=== PATIENT | male | born 1935 | race Caucasian/White ===

== ENCOUNTER → 2020-12-03 | Outpatient (REF) | payer MEDICARE | LOC: M LAB REF 17:04 | PROVIDERS: ATTEND Surgery | DX: L72.0 Epidermal cyst (principal) ==

== ENCOUNTER 2024-07-16 10:40 | Inpatient (IN) | payer MEDICARE ==
[~2024-07-16] VITALS: Ht 182.9 cm; Wt 95.0 kg
[2024-07-16] MEDS ORDERED: MIRALAX *UNIT DOSE* 17GM PACKET PO PRN (13:40)
[2024-07-16] MEDS ORDERED: MAALOX 30 ML SUSP *UDC PO PRN (13:40)
[2024-07-16] MEDS ORDERED: SIMETHICONE 80MG CHEW TAB PO PRN (13:40)
[2024-07-16] MEDS ORDERED: ONDANSETRON 4MG TAB PO PRN (13:40)
[2024-07-16] MEDS ORDERED: BISACODYL 10MG SUPP PR PRN (13:40)
[2024-07-16 15:30] VITALS: BP 162/88; TEMP 98; O2SAT 92
[2024-07-16] MEDS ORDERED: AMLO1TAB25 PO (16:05)
[2024-07-16] MEDS ORDERED: FURO40TA2 PO (16:05)
[2024-07-16] MEDS ORDERED: FLOM0.4C39 PO (16:05)
[2024-07-16] MEDS ORDERED: EZET10TA21 PO (16:09)
[2024-07-16] MEDS ORDERED: TRAN1DIS4 TOP (16:09)
[2024-07-16] MEDS ORDERED: OMEP40CA5 PO (16:09)
[2024-07-16] MEDS ORDERED: VIBE75TA PO (16:09)
[2024-07-16] MEDS ORDERED: VITA250T27 PO (16:47)
[2024-07-16] MEDS ORDERED: ACET-907 PO (16:47)
[2024-07-16] MEDS ORDERED: ELIQ5TAB PO (16:47)
[2024-07-16] MEDS ORDERED: THERTAB52 PO (16:47)
[2024-07-16] MEDS ORDERED: DOCU100C16 PO (16:49)
[2024-07-16] MEDS ORDERED: TRAZ-252 PO (16:49)
[2024-07-16] MEDS ORDERED: MELA3TAB29 PO (16:50)
[2024-07-16] MEDS ORDERED: SIME80CH6 PO (16:50)
[2024-07-16] MEDS ORDERED: MILK400S12 PO (16:51)
[2024-07-16] MEDS ORDERED: HOME MED LIST COMPLETE! XX SCH (16:55)
[2024-07-16 20:00] VITALS: BP 126/62; TEMP 98.8; O2SAT 100
[2024-07-16] MEDS: PANTOPRAZOLE 40MG TAB (PROTONIX) PO SCH (20:40)
[2024-07-16] MEDS: MIRTAZAPINE 15 MG TAB PO SCH (20:40)
[2024-07-16] MEDS: APIXABAN 5 MG TAB (ELIQUIS) PO SCH (20:40)
[2024-07-16] MEDS: TAMSULOSIN 0.4 MG CAP PO SCH (20:41)
[2024-07-16] MEDS: ACETAMINOPHEN 500 MG TAB PO SCH (20:41)
[2024-07-16] MEDS: SENOKOT S TAB PO SCH (20:41)
[2024-07-16] MEDS: oxyCODONE 5MG TAB PO PRN (22:24)
[2024-07-17] MEDS: QUEtiapine FUMARATE 12.5 MG HALF-TAB PO PRN (00:43)
[2024-07-17 04:27] VITALS: BP 131/73; TEMP 97.1; O2SAT 96
[2024-07-17 07:52] LABS: BASO # 0.1 10^3/uL (0.0-0.2); BASO % 0.8 % (0.0-1.0); EOS # 0.2 10^3/uL (0.0-0.5); EOS % 2.8 % (0.0-3.0); HEMATOCRIT 38.3 % (42.0-52.0); HEMOGLOBIN 12.7 g/dl (13.5-17.5); LYMPH # 1.2 10^3/uL (1.5-5.0); LYMPH % 14.1 % (24.0-44.0); MEAN CORPUSCULAR HGB CONC 33.2 g/dl (32.0-36.5); MEAN CORPUSCULAR VOLUME 90.5 fl (80.0-96.0); MONO # 0.7 10^3/uL (0.0-0.8); MONO % 8.6 % (2.0-8.0); NEUTROPHILS # 6.3 10^3/uL (1.5-8.5); NEUTROPHILS % 73.5 % (36.0-66.0); PLATELET COUNT, AUTOMATED 326 10^3/uL (150-450); RED BLOOD COUNT 4.23 10^6/uL (4.30-6.10); WHITE BLOOD COUNT 8.6 10^3/uL (4.0-10.0)
[2024-07-17] MEDS: traZODone 25MG PER 1/2 TABLET PO SCH (08:20)
[2024-07-17] MEDS: FUROSEMIDE 40 MG TAB PO SCH (08:20)
[2024-07-17] MEDS: MULTIVITAMINS/MINERALS THERAP 1 TAB PO SCH (08:20)
[2024-07-17 08:32] LABS: BLOOD UREA NITROGEN 15 MG/DL (9-23); CALCIUM LEVEL 8.8 MG/DL (8.3-10.6); CARBON DIOXIDE LEVEL 31 MMOL/L (20-31); CHLORIDE LEVEL 103 MMOL/L (98-107); CREATININE FOR GFR 0.78 MG/DL (0.70-1.30); GLOMERULAR FILTRATION RATE > 60.0 (>35); GLUCOSE, FASTING 107 MG/DL (74-106); SODIUM LEVEL 143 MMOL/L (136-145)
[2024-07-17] MEDS ORDERED: E-Z-PAQUE 96% w/w SUSP 176GM BTL As Ordered ONE (11:27)
[2024-07-17] MEDS ORDERED: VARIBAR PUDDING 40% w/v 230ML TUBE As Ordered ONE (11:27)
[2024-07-17] MEDS ORDERED: VARIBAR NECTAR 40% w/v 240ML SUSP BTL As Ordered ONE (11:27)
[2024-07-17] MEDS ORDERED: BARIUM SULFATE 700 MG TABLET (E-Z-DISK) As Ordered ONE (11:27)
[2024-07-17] MEDS: LevoFLOXacin 500 MG TABLET PO SCH (13:23)
[2024-07-17 18:00] VITALS: BP 122/76; TEMP 97.2; O2SAT 100
[2024-07-17] MEDS: QUEtiapine FUMARATE 25 MG TAB PO SCH (18:52)
[2024-07-17 20:00] VITALS: BP 113/69; TEMP 97.8; O2SAT 95
[2024-07-18 04:00] VITALS: BP 129/63; TEMP 96.6; O2SAT 95
[2024-07-18 12:00] VITALS: TEMP 97.1; O2SAT 95
[2024-07-18] MEDS: BISACODYL 5MG TAB PO ONE (15:34)
[2024-07-18 20:00] VITALS: BP 159/77; TEMP 96.8; O2SAT 95
[2024-07-18] MEDS: SENOKOT S TAB PO SCH (20:13)
[2024-07-19 04:00] VITALS: BP 160/82; TEMP 97.1; O2SAT 96
[2024-07-19] MEDS: guaiFENesin DM LIQ 10ML UD PO PRN (06:30)
[2024-07-19] MEDS: MOM 30ML SUSPENSION UDC PO PRN (09:12)
[2024-07-19] MEDS ORDERED: POLYVINYL ALCOHOL OPHTH SOLN 15ML (LIQUITEARS) OU PRN (11:05)
[2024-07-19 12:00] VITALS: BP 149/70; TEMP 97.5; O2SAT 95
[2024-07-19] MEDS: POLYVINYL ALCOHOL OPHTH SOLN 15ML (LIQUITEARS) OU SCH (12:37)
[2024-07-19 20:00] VITALS: BP 139/66; TEMP 97.3; O2SAT 96
[2024-07-20 04:07] VITALS: BP 150/71; TEMP 97.2; O2SAT 95
[2024-07-20 12:00] VITALS: BP 116/68; TEMP 98.1; O2SAT 94
[2024-07-20 19:54] VITALS: BP 151/73; TEMP 98.6; O2SAT 94
[2024-07-21 04:44] VITALS: BP 162/74; TEMP 96; O2SAT 95
[2024-07-21 05:48] VITALS: BP 136/74
[2024-07-21 12:00] VITALS: BP 133/64; TEMP 98.3; O2SAT 97
[2024-07-21 19:46] VITALS: BP 158/76; TEMP 97.6; O2SAT 92
[2024-07-22 04:30] VITALS: BP 188/90; TEMP 97.6; O2SAT 97
[2024-07-22] MEDS: **hydrALAZINE HCL** 25 MG TAB PO PRN (05:21)
[2024-07-22 08:06] VITALS: BP 128/78
[2024-07-22 09:33] VITALS: O2SAT 95
[2024-07-22 12:00] VITALS: BP 122/74; TEMP 98; O2SAT 97
[2024-07-22] MEDS: SCOPOLAMINE 1MG TRANSDERMAL PATCH TOP SCH (12:54)
[2024-07-22] MEDS: IBUPROFEN 400MG TAB PO ONE (12:55)
[2024-07-22 20:00] VITALS: BP 131/68; TEMP 97.7; O2SAT 94
[2024-07-23 04:00] VITALS: BP 130/79; TEMP 97.3; O2SAT 95
[2024-07-23] MEDS: IBUPROFEN 400MG TAB PO PRN (08:46)
[2024-07-23 12:00] VITALS: BP 128/74; TEMP 97.5; O2SAT 96
[2024-07-23 20:00] VITALS: BP 146/67; TEMP 98.2; O2SAT 93
[2024-07-24 04:00] VITALS: BP 130/76; TEMP 97.8; O2SAT 94
[2024-07-24 12:00] VITALS: BP 129/62; TEMP 97.6; O2SAT 95
[2024-07-24 19:34] VITALS: BP 154/72; TEMP 98.6; O2SAT 95
[2024-07-24] MEDS: oxyCODONE 5MG TAB PO PRN (23:48)
[2024-07-25 04:00] VITALS: BP 157/76; TEMP 97.8; O2SAT 96
[2024-07-25 11:44] LABS: BASO # 0.1 10^3/uL (0.0-0.2); EOS # 0.2 10^3/uL (0.0-0.5); EOS % 2.6 % (0.0-3.0); HEMATOCRIT 42.1 % (42.0-52.0); HEMOGLOBIN 13.9 g/dl (13.5-17.5); LYMPH # 1.3 10^3/uL (1.5-5.0); LYMPH % 17.8 % (24.0-44.0); MEAN CORPUSCULAR VOLUME 90.9 fl (80.0-96.0); MONO # 0.6 10^3/uL (0.0-0.8); MONO % 8.4 % (2.0-8.0); NEUTROPHILS # 4.9 10^3/uL (1.5-8.5); NEUTROPHILS % 70.1 % (36.0-66.0); PLATELET COUNT, AUTOMATED 350 10^3/uL (150-450); RED BLOOD COUNT 4.63 10^6/uL (4.30-6.10)
[2024-07-25 12:00] VITALS: BP 117/56; TEMP 97.5; O2SAT 96
[2024-07-25] MEDS: BISACODYL 5MG TAB PO ONE (12:05)
[2024-07-25 12:10] LABS: ALBUMIN 3.7 G/DL (3.2-5.2); ALKALINE PHOSPHATASE 88 U/L (40-129); ALT/SGPT 19 U/L (7.0-40); AST/SGOT 21 U/L (<34); BILIRUBIN,TOTAL 0.6 MG/DL (0.3-1.2); BLOOD UREA NITROGEN 17 MG/DL (9-23); CALCIUM LEVEL 9.6 MG/DL (8.3-10.6); CARBON DIOXIDE LEVEL 31 MMOL/L (20-31); CHLORIDE LEVEL 103 MMOL/L (98-107); CREATININE FOR GFR 0.83 MG/DL (0.70-1.30); GLOMERULAR FILTRATION RATE > 60.0 (>35); GLUCOSE, FASTING 98 MG/DL (74-106); POTASSIUM SERUM 4.5 MMOL/L (3.5-5.1); SODIUM LEVEL 142 MMOL/L (136-145); TOTAL PROTEIN 7.3 G/DL (5.7-8.2)
[2024-07-25 15:25] LABS: KETONE, URINE AUTO RFX NEGATIVE (NEGATIVE); LEUKOCYTE ESTERASE UR AUTO RFX NEGATIVE (NEGATIVE)
[2024-07-25 20:29] VITALS: BP 131/69; TEMP 97.2; O2SAT 93
[2024-07-26 03:52] VITALS: BP 157/74; TEMP 97.6; O2SAT 95
[2024-07-26] MEDS: BISACODYL 5MG TAB PO SCH (08:57)
[2024-07-26 12:00] VITALS: BP 133/67; TEMP 97.8; O2SAT 96
[2024-07-26 20:00] VITALS: BP 160/77; TEMP 97.7; O2SAT 95
[2024-07-27] MEDS: traMADol 50 MG TAB PO PRN (00:28)
[2024-07-27 04:00] VITALS: BP 158/82; TEMP 97.4; O2SAT 96
[2024-07-27 12:00] VITALS: BP 128/62; TEMP 97.6; O2SAT 98
[2024-07-27 20:00] VITALS: BP 142/65; TEMP 97.4; O2SAT 94
[2024-07-28 04:00] VITALS: BP 135/68; TEMP 97.4; O2SAT 95
[2024-07-28 12:00] VITALS: BP 132/72; TEMP 97.7; O2SAT 98
[2024-07-28 19:51] VITALS: BP 154/73; TEMP 98; O2SAT 98
[2024-07-29 06:31] VITALS: BP 146/77; TEMP 97.4; O2SAT 97
[2024-07-29 12:00] VITALS: BP 130/62; TEMP 97.4; O2SAT 97
[2024-07-29 20:00] VITALS: BP 134/63; TEMP 98.8; O2SAT 95
[2024-07-29] MEDS ORDERED: TRAM50TA2 PO (20:18)
[2024-07-29] MEDS ORDERED: AMLO1TAB25 PO (20:18)
[2024-07-29] MEDS ORDERED: SENN-52 PO (20:18)
[2024-07-29] MEDS ORDERED: FLOM0.4C39 PO (20:18)
[2024-07-29] MEDS ORDERED: QUET1TAB17 PO (20:18)
[2024-07-29] MEDS ORDERED: IBUP-1114 PO (20:18)
[2024-07-29] MEDS ORDERED: TRAZ-252 PO (20:18)
[2024-07-30 05:10] VITALS: BP 139/77; TEMP 97.8; O2SAT 96
[2024-07-30 08:55] VITALS: BP 138/70
[2024-07-30 12:00] VITALS: BP 128/68; TEMP 97.1; O2SAT 97
== END 2024-07-30 14:55 | disposition home health service (06) | DRG 560 ==
LOC: M PM&R 15:30
PROVIDERS: ADMIT Physical Medicine & Rehabilitation; ATTEND Physical Medicine & Rehabilitation
DX: S72.092D Other fracture of head and neck of left femur, subsequent encounter for closed fracture with routine healing (principal); I48.21 Permanent atrial fibrillation; Z66 Do not resuscitate; I25.10 Atherosclerotic heart disease of native coronary artery without angina pectoris; I10 Essential (primary) hypertension; S00.93XD Contusion of unspecified part of head, subsequent encounter; K21.9 Gastro-esophageal reflux disease without esophagitis; K11.7 Disturbances of salivary secretion; Z74.1 Need for assistance with personal care; R13.12 Dysphagia, oropharyngeal phase; Z74.09 Other reduced mobility; N40.1 Benign prostatic hyperplasia with lower urinary tract symptoms; R05.8 Other specified cough; E78.5 Hyperlipidemia, unspecified; E66.9 Obesity, unspecified; R41.0 Disorientation, unspecified; Z79.01 Long term (current) use of anticoagulants; Z79.891 Long term (current) use of opiate analgesic; Z79.899 Other long term (current) drug therapy; S12.001 Unspecified nondisplaced fracture of first cervical vertebra; Z95.5 Presence of coronary angioplasty implant and graft; Z95.0 Presence of cardiac pacemaker

== ENCOUNTER 2024-08-09 10:34 | Inpatient (IN) | payer MEDICARE ==
[~2024-08-09] VITALS: Ht 188 cm; Wt 90.0 kg
[~2024-08-09 10:34] MED LIST: ACET-907 PO; AMLO1TAB25 PO; DOCU100C16 PO; ELIQ5TAB PO; EZET10TA21 PO; FLOM0.4C39 PO; FURO40TA2 PO; IBUP-1114 PO; MELA3TAB29 PO; MILK400S12 PO; OMEP40CA5 PO; QUET1TAB17 PO; SENN-52 PO; SIME80CH6 PO; THERTAB52 PO; TRAM50TA2 PO; TRAN1DIS4 TOP; TRAZ-252 PO; VIBE75TA PO; VITA250T27 PO
[2024-08-09 12:05] LABS: VENOUS BASE EXCESS 2.1 (-2.0-2.0); VENOUS HCO3 29.2 MMOL/L (23.0-27.0); VENOUS O2 SATURATION 53.4 % (60.0-80.0); VENOUS PARTIAL PRESSURE CO2 55.7 mmHg (38.0-50.0); VENOUS PARTIAL PRESSURE O2 27.6 mmHg (30.0-50.0); VENOUS PH 7.338 UNITS (7.330-7.430); VENOUS STANDARD HCO3 25.2 MMOL/L
[2024-08-09 12:08] LABS: BASO % 0.3 % (0.0-1.0); EOS # 0.1 10^3/uL (0.0-0.5); EOS % 0.9 % (0.0-3.0); LYMPH # 1.4 10^3/uL (1.5-5.0); LYMPH % 14.6 % (24.0-44.0); MEAN CORPUSCULAR HEMOGLOBIN 29.8 pg (27.0-33.0); MEAN CORPUSCULAR HGB CONC 33.3 g/dl (32.0-36.5); MEAN CORPUSCULAR VOLUME 89.4 fl (80.0-96.0); MONO # 0.9 10^3/uL (0.0-0.8); MONO % 9.4 % (2.0-8.0); NEUTROPHILS % 74.5 % (36.0-66.0); PLATELET COUNT, AUTOMATED 289 10^3/uL (150-450); WHITE BLOOD COUNT 9.3 10^3/uL (4.0-10.0)
[2024-08-09 12:15] LABS: KETONE, URINE AUTO RFX TRACE mg/dL (NEGATIVE); LEUKOCYTE ESTERASE UR AUTO RFX NEGATIVE (NEGATIVE); MUCUS, URINE RFX SMALL (NEGATIVE); NITRITE, URINE AUTO RFX NEGATIVE (NEGATIVE); RBC, URINE AUTO RFX 1 /HPF (0-3); SQUAM EPITHELIAL CELL UR AURFX 0 /HPF (0-6); WBC, URINE AUTO RFX 0 /HPF (0-3)
[2024-08-09 12:23] LABS: INR 1.16; PARTIAL THROMBOPLASTIN TIME 36.5 SECONDS (24.8-34.2); PROTHROMBIN TIME 15.1 SECONDS (12.5-14.5)
[2024-08-09 12:32] LABS: ETHYL ALCOHOL (ETHANOL) < 0.003 % (0.000-0.010)
[2024-08-09 12:33] LABS: SALICYLATE LEVEL < 3.0 MG/DL (<30)
[2024-08-09] MEDS: LIDOCAINE 2% 5ML JELLY UROJET TOP ONE (12:33)
[2024-08-09 12:35] LABS: ALBUMIN 4.1 G/DL (3.2-5.2); ALKALINE PHOSPHATASE 101 U/L (40-129); ALT/SGPT 19 U/L (7.0-40); AST/SGOT 21 U/L (<34); BILIRUBIN,DIRECT 0.2 MG/DL (<0.4); BILIRUBIN,TOTAL 0.6 MG/DL (0.3-1.2); BLOOD UREA NITROGEN 17 MG/DL (9-23); CALCIUM LEVEL 9.8 MG/DL (8.3-10.6); CARBON DIOXIDE LEVEL 30 MMOL/L (20-31); CHLORIDE LEVEL 103 MMOL/L (98-107); CPK CREATINE PHOSPHOKINASE 179 U/L (46-171); CREATININE FOR GFR 0.66 MG/DL (0.70-1.30); GLOMERULAR FILTRATION RATE > 60.0 (>35); GLUCOSE, FASTING 111 MG/DL (74-106); POTASSIUM SERUM 4.2 MMOL/L (3.5-5.1); SODIUM LEVEL 143 MMOL/L (136-145); TOTAL PROTEIN 7.5 G/DL (5.7-8.2)
[2024-08-09 12:37] LABS: THYROID STIMULATING HORMONE 1.052 uIU/ML (0.55-4.78)
[2024-08-09 12:38] LABS: CK-MB VALUE MASS 3.3 NG/ML (<3.6); FREE T4 1.6 NG/DL (0.89-1.76); MAGNESIUM LEVEL 2.1 MG/DL (1.8-2.4); MB/CK RELATIVE INDEX 1.84 (< OR =4)
[2024-08-09] MEDS ORDERED: TRAM50TA2 PO (13:54)
[2024-08-09] MEDS ORDERED: SENN-50 PO (13:54)
[2024-08-09] MEDS ORDERED: QUET1TAB17 PO (13:54)
[2024-08-09] MEDS ORDERED: TRAZ1TAB10 PO (13:54)
[2024-08-09] MEDS ORDERED: HOME MED LIST COMPLETE! XX SCH (13:55)
[2024-08-09] MEDS: APIXABAN 5 MG TAB (ELIQUIS) PO SCH (20:58)
[2024-08-09] MEDS: traZODone 25MG PER 1/2 TABLET PO SCH (20:58)
[2024-08-09] MEDS: ASCORBIC ACID 250 MG TAB PO SCH (20:58)
[2024-08-09] MEDS: TAMSULOSIN 0.4 MG CAP PO SCH (20:58)
[2024-08-09] MEDS: SENOKOT S TAB PO SCH (20:58)
[2024-08-09] MEDS: QUEtiapine FUMARATE 25 MG TAB PO SCH (20:58)
[2024-08-09] MEDS: RAMELTEON 8 MG TAB (ROZEREM) PO SCH (20:58)
[2024-08-09 21:30] VITALS: BP 137/77; TEMP 97.7; O2SAT 97
[2024-08-10 04:00] VITALS: BP 146/75; TEMP 97.5; O2SAT 96
[2024-08-10 07:28] LABS: HEMATOCRIT 38.4 % (42.0-52.0); HEMOGLOBIN 12.9 g/dl (13.5-17.5); MEAN CORPUSCULAR HEMOGLOBIN 30.2 pg (27.0-33.0); MEAN CORPUSCULAR HGB CONC 33.6 g/dl (32.0-36.5); MEAN CORPUSCULAR VOLUME 89.9 fl (80.0-96.0); PLATELET COUNT, AUTOMATED 264 10^3/uL (150-450); RED BLOOD COUNT 4.27 10^6/uL (4.30-6.10); WHITE BLOOD COUNT 6.8 10^3/uL (4.0-10.0)
[2024-08-10 08:08] LABS: ALBUMIN 3.4 G/DL (3.2-5.2); ALKALINE PHOSPHATASE 84 U/L (40-129); ALT/SGPT 15 U/L (7.0-40); AST/SGOT 20 U/L (<34); BILIRUBIN,TOTAL 0.7 MG/DL (0.3-1.2); BLOOD UREA NITROGEN 18 MG/DL (9-23); CALCIUM LEVEL 9.3 MG/DL (8.3-10.6); CARBON DIOXIDE LEVEL 29 MMOL/L (20-31); CHLORIDE LEVEL 107 MMOL/L (98-107); CREATININE FOR GFR 0.64 MG/DL (0.70-1.30); GLOMERULAR FILTRATION RATE > 60.0 (>35); GLUCOSE, FASTING 105 MG/DL (74-106); POTASSIUM SERUM 3.9 MMOL/L (3.5-5.1); SODIUM LEVEL 143 MMOL/L (136-145); TOTAL PROTEIN 6.4 G/DL (5.7-8.2)
[2024-08-10] MEDS: PANTOPRAZOLE 20 MG TAB PO SCH (10:22)
[2024-08-10] MEDS: EZETIMIBE 10MG TABLET (ZETIA) PO SCH (10:22)
[2024-08-10 12:00] VITALS: BP 123/63; TEMP 97.5; O2SAT 96
[2024-08-10 20:00] VITALS: BP 162/82; TEMP 97.5; O2SAT 96
[2024-08-10] MEDS: traMADol 50 MG TAB PO PRN (23:13)
[2024-08-11] MEDS: ACETAMINOPHEN 325 MG TAB PO PRN (03:16)
[2024-08-11 03:47] VITALS: BP 160/81; TEMP 97.7; O2SAT 96
[2024-08-11 12:00] VITALS: BP 140/65; TEMP 97.5; O2SAT 98
[2024-08-11 20:08] VITALS: BP 157/78; TEMP 97.9; O2SAT 96
[2024-08-12 04:00] VITALS: BP 155/79; TEMP 97.7; O2SAT 96
[2024-08-12 09:02] VITALS: BP 137/67
[2024-08-12 12:00] VITALS: BP 138/68; TEMP 97.6; O2SAT 98
[2024-08-12 20:50] VITALS: BP 132/69; TEMP 98.1; O2SAT 92
[2024-08-13 03:50] VITALS: BP 140/72; TEMP 97.7; O2SAT 97
[2024-08-14 04:00] VITALS: BP 144/73; TEMP 97.5; O2SAT 96
[2024-08-14 12:00] VITALS: BP 137/72; TEMP 97.6; O2SAT 98
[2024-08-14 19:44] VITALS: BP 143/76; TEMP 97; O2SAT 98
[2024-08-15 04:04] VITALS: BP 169/84; TEMP 97.9; O2SAT 97
[2024-08-15 12:28] LABS: HEMATOCRIT 38.2 % (42.0-52.0); HEMOGLOBIN 12.8 g/dl (13.5-17.5); MEAN CORPUSCULAR HEMOGLOBIN 30.3 pg (27.0-33.0); MEAN CORPUSCULAR HGB CONC 33.5 g/dl (32.0-36.5); MEAN CORPUSCULAR VOLUME 90.3 fl (80.0-96.0); PLATELET COUNT, AUTOMATED 281 10^3/uL (150-450); RED BLOOD COUNT 4.23 10^6/uL (4.30-6.10); WHITE BLOOD COUNT 6.1 10^3/uL (4.0-10.0)
[2024-08-16] MEDS: diphenhydrAMINE 50MG/ML VIAL IM ONE (01:38)
[2024-08-16] MEDS: HALOPERIDOL LACTATE 5MG/ML VIAL IM ONE (01:39)
[2024-08-16] MEDS ORDERED: HALOPERIDOL LACTATE 5MG/ML VIAL IV ONE (02:00)
[2024-08-16 03:57] VITALS: BP 129/73; TEMP 97.2; O2SAT 96
[2024-08-16] MEDS: HALOPERIDOL LACTATE 5MG/ML VIAL IV ONE (23:00)
[2024-08-17 04:05] VITALS: BP 136/76; TEMP 97.9; O2SAT 96
[2024-08-17] MEDS ORDERED: PILL CUTTER 1 EACH XX PRN (14:40)
[2024-08-17] MEDS: OLANZapine ORAL DISINTEGRATING TAB 5MG PO ONE (14:43)
[2024-08-17] MEDS: OLANZapine INTRAMUSCULAR 10MG VIAL IM ONE ×2 (16:14→22:28)
[2024-08-17] MEDS: OLANZapine ORAL DISINTEGRATING TAB 5MG PO PRN (22:19)
[2024-08-18] MEDS: diphenhydrAMINE 50MG/ML VIAL IM STA (00:23)
[2024-08-18 03:46] VITALS: BP 154/81; TEMP 97.5; O2SAT 96
[2024-08-18] MEDS: HALOPERIDOL LACTATE 5MG/ML VIAL IM ONE (06:15)
[2024-08-19 04:00] VITALS: BP 152/75; TEMP 97.5; O2SAT 95
[2024-08-19 12:43] LABS: HEMOGLOBIN 13.8 g/dl (13.5-17.5); MEAN CORPUSCULAR HEMOGLOBIN 30.5 pg (27.0-33.0); MEAN CORPUSCULAR HGB CONC 33.7 g/dl (32.0-36.5); MEAN CORPUSCULAR VOLUME 90.5 fl (80.0-96.0); PLATELET COUNT, AUTOMATED 309 10^3/uL (150-450); RED BLOOD COUNT 4.53 10^6/uL (4.30-6.10); WHITE BLOOD COUNT 7.8 10^3/uL (4.0-10.0)
[2024-08-19 13:09] LABS: BLOOD UREA NITROGEN 17 MG/DL (9-23); CARBON DIOXIDE LEVEL 30 MMOL/L (20-31); CHLORIDE LEVEL 104 MMOL/L (98-107); CREATININE FOR GFR 0.65 MG/DL (0.70-1.30); GLOMERULAR FILTRATION RATE > 60.0 (>35); GLUCOSE, FASTING 118 MG/DL (74-106); SODIUM LEVEL 143 MMOL/L (136-145)
[2024-08-20 04:26] VITALS: BP 142/78; TEMP 97.5; O2SAT 98
[2024-08-21 04:00] VITALS: BP 133/71; TEMP 97.5; O2SAT 97
[2024-08-22 04:00] VITALS: BP 95/64; TEMP 97.7; O2SAT 20
[2024-08-22 12:21] LABS: HEMATOCRIT 38.6 % (42.0-52.0); HEMOGLOBIN 12.9 g/dl (13.5-17.5); MEAN CORPUSCULAR HGB CONC 33.4 g/dl (32.0-36.5); MEAN CORPUSCULAR VOLUME 89.8 fl (80.0-96.0); PLATELET COUNT, AUTOMATED 260 10^3/uL (150-450); WHITE BLOOD COUNT 9.2 10^3/uL (4.0-10.0)
[2024-08-23 04:46] VITALS: BP 149/74; TEMP 97.7; O2SAT 96
[2024-08-23] MEDS: IPRATROPIUM 0.5MG/ALBUTEROL 2.5MG INH SOL UD 3ML (DUONEB) NEB PRN (20:25)
[2024-08-24 04:00] VITALS: BP 157/84; TEMP 98.6; O2SAT 95
[2024-08-24] MEDS: DEXTROMETHORPHAN 60MG/10ML SUSP 90ML BTL(DELSYM) PO PRN (05:47)
[2024-08-24 06:11] LABS: VENOUS BASE EXCESS 2.9 (-2.0-2.0); VENOUS HCO3 28.7 MMOL/L (23.0-27.0); VENOUS O2 SATURATION 77.4 % (60.0-80.0); VENOUS PARTIAL PRESSURE CO2 48.6 mmHg (38.0-50.0); VENOUS PARTIAL PRESSURE O2 39.6 mmHg (30.0-50.0); VENOUS PH 7.389 UNITS (7.330-7.430); VENOUS STANDARD HCO3 26.6 MMOL/L; VENOUS TOTAL CO2 30.2 MMOL/L (24.0-28.0)
[2024-08-24 06:19] LABS: BASO % 0.4 % (0.0-1.0); EOS % 0.5 % (0.0-3.0); HEMATOCRIT 38.3 % (42.0-52.0); HEMOGLOBIN 12.8 g/dl (13.5-17.5); LYMPH # 0.4 10^3/uL (1.5-5.0); LYMPH % 7.8 % (24.0-44.0); MEAN CORPUSCULAR HEMOGLOBIN 30.3 pg (27.0-33.0); MEAN CORPUSCULAR HGB CONC 33.4 g/dl (32.0-36.5); MEAN CORPUSCULAR VOLUME 90.8 fl (80.0-96.0); MONO # 0.7 10^3/uL (0.0-0.8); MONO % 12.7 % (2.0-8.0); NEUTROPHILS # 4.3 10^3/uL (1.5-8.5); NEUTROPHILS % 78.4 % (36.0-66.0); PLATELET COUNT, AUTOMATED 228 10^3/uL (150-450); RED BLOOD COUNT 4.22 10^6/uL (4.30-6.10); WHITE BLOOD COUNT 5.5 10^3/uL (4.0-10.0)
[2024-08-24 06:24] LABS: ERYTHROCYTE SEDIMENTATION RATE 47 mm/hr (0-20)
[2024-08-24 06:48] LABS: ALBUMIN 3.3 G/DL (3.2-5.2); ALKALINE PHOSPHATASE 81 U/L (40-129); ALT/SGPT 16 U/L (7.0-40); AST/SGOT 17 U/L (<34); BILIRUBIN,TOTAL 0.6 MG/DL (0.3-1.2); BLOOD UREA NITROGEN 17 MG/DL (9-23); C REACTIVE PROTEIN QUANTITATIV 4.56 MG/DL (<1.0); CALCIUM LEVEL 8.7 MG/DL (8.3-10.6); CARBON DIOXIDE LEVEL 29 MMOL/L (20-31); CHLORIDE LEVEL 104 MMOL/L (98-107); CREATININE FOR GFR 0.67 MG/DL (0.70-1.30); GLOMERULAR FILTRATION RATE > 60.0 (>35); GLUCOSE, FASTING 110 MG/DL (74-106); MAGNESIUM LEVEL 1.8 MG/DL (1.8-2.4); POTASSIUM SERUM 4.1 MMOL/L (3.5-5.1); SODIUM LEVEL 142 MMOL/L (136-145); TOTAL PROTEIN 6.1 G/DL (5.7-8.2)
[2024-08-24 06:54] LABS: PROCALCITONIN 0.08 ng/ml
[2024-08-24] MEDS: OSELTAMIVIR PHOSPHATE 75 MG CAP PO SCH (20:31)
[2024-08-24 21:45] VITALS: O2SAT 93
[2024-08-24 22:16] VITALS: BP 113/50; TEMP 97.3; O2SAT 97
[2024-08-24 22:33] VITALS: TEMP 100.9
[2024-08-24 23:24] LABS: BASO % 0.4 % (0.0-1.0); EOS % 0.2 % (0.0-3.0); HEMOGLOBIN 11.8 g/dl (13.5-17.5); LYMPH # 1.1 10^3/uL (1.5-5.0); LYMPH % 19.4 % (24.0-44.0); MEAN CORPUSCULAR HEMOGLOBIN 30.1 pg (27.0-33.0); MEAN CORPUSCULAR HGB CONC 33.7 g/dl (32.0-36.5); MEAN CORPUSCULAR VOLUME 89.3 fl (80.0-96.0); MONO # 0.9 10^3/uL (0.0-0.8); MONO % 16.6 % (2.0-8.0); NEUTROPHILS # 3.4 10^3/uL (1.5-8.5); PLATELET COUNT, AUTOMATED 226 10^3/uL (150-450); RED BLOOD COUNT 3.92 10^6/uL (4.30-6.10); WHITE BLOOD COUNT 5.4 10^3/uL (4.0-10.0)
[2024-08-24 23:49] LABS: ALBUMIN 3.2 G/DL (3.2-5.2); ALKALINE PHOSPHATASE 76 U/L (40-129); ALT/SGPT 15 U/L (7.0-40); AST/SGOT 18 U/L (<34); BILIRUBIN,TOTAL 0.3 MG/DL (0.3-1.2); BLOOD UREA NITROGEN 20 MG/DL (9-23); CALCIUM LEVEL 8.2 MG/DL (8.3-10.6); CARBON DIOXIDE LEVEL 27 MMOL/L (20-31); CHLORIDE LEVEL 105 MMOL/L (98-107); CREATININE FOR GFR 0.79 MG/DL (0.70-1.30); GLOMERULAR FILTRATION RATE > 60.0 (>35); GLUCOSE, FASTING 121 MG/DL (74-106); MAGNESIUM LEVEL 1.8 MG/DL (1.8-2.4); SODIUM LEVEL 142 MMOL/L (136-145); TOTAL PROTEIN 5.9 G/DL (5.7-8.2)
[2024-08-24 23:56] LABS: PROCALCITONIN 0.07 ng/ml
[2024-08-25] VITALS (7 sets, daily range): BP systolic 136; BP diastolic 56; TEMP 99.7–104; O2SAT 90–95
[2024-08-25] MEDS ORDERED: LEVALBUTEROL 1.25MG 0.5ML CONCENTRATE NEB INH PRN (00:05)
[2024-08-25] MEDS: IPRATROPIUM 0.5MG/ALBUTEROL 2.5MG INH SOL UD 3ML (DUONEB) NEB SCH (02:58)
[2024-08-25] MEDS: IBUPROFEN 800 MG TAB PO ONE (16:57)
[2024-08-26 04:00] VITALS: BP 148/71; TEMP 97.9; O2SAT 95
[2024-08-26 12:19] LABS: HEMOGLOBIN 13.5 g/dl (13.5-17.5); MEAN CORPUSCULAR HEMOGLOBIN 30.3 pg (27.0-33.0); MEAN CORPUSCULAR HGB CONC 32.9 g/dl (32.0-36.5); MEAN CORPUSCULAR VOLUME 91.9 fl (80.0-96.0); PLATELET COUNT, AUTOMATED 246 10^3/uL (150-450); RED BLOOD COUNT 4.46 10^6/uL (4.30-6.10); WHITE BLOOD COUNT 4.9 10^3/uL (4.0-10.0)
[2024-08-26 12:52] LABS: BLOOD UREA NITROGEN 18 MG/DL (9-23); CALCIUM LEVEL 8.8 MG/DL (8.3-10.6); CARBON DIOXIDE LEVEL 31 MMOL/L (20-31); CHLORIDE LEVEL 104 MMOL/L (98-107); CREATININE FOR GFR 0.65 MG/DL (0.70-1.30); GLOMERULAR FILTRATION RATE > 60.0 (>35); GLUCOSE, FASTING 107 MG/DL (74-106); POTASSIUM SERUM 4.2 MMOL/L (3.5-5.1); SODIUM LEVEL 143 MMOL/L (136-145)
[2024-08-27 04:00] VITALS: BP 147/70; TEMP 97.9; O2SAT 90
[2024-08-27 23:32] LABS: KETONE, URINE AUTO RFX NEGATIVE (NEGATIVE); LEUKOCYTE ESTERASE UR AUTO RFX NEGATIVE (NEGATIVE); NITRITE, URINE AUTO RFX NEGATIVE (NEGATIVE); RBC, URINE AUTO RFX 1 /HPF (0-3); SQUAM EPITHELIAL CELL UR AURFX 0 /HPF (0-6); WBC, URINE AUTO RFX 0 /HPF (0-3)
[2024-08-28] MEDS: OLANZapine INTRAMUSCULAR 10MG VIAL IM PRN (00:42)
[2024-08-28 03:13] VITALS: BP 155/75; TEMP 97.7; O2SAT 95
[2024-08-29 04:00] VITALS: BP 148/75; TEMP 97.9; O2SAT 94
[2024-08-29 12:35] LABS: HEMATOCRIT 37.2 % (42.0-52.0); HEMOGLOBIN 12.4 g/dl (13.5-17.5); MEAN CORPUSCULAR HGB CONC 33.3 g/dl (32.0-36.5); MEAN CORPUSCULAR VOLUME 89.9 fl (80.0-96.0); PLATELET COUNT, AUTOMATED 259 10^3/uL (150-450); RED BLOOD COUNT 4.14 10^6/uL (4.30-6.10); WHITE BLOOD COUNT 5.4 10^3/uL (4.0-10.0)
[2024-08-30 04:41] VITALS: BP 146/74; TEMP 97.9; O2SAT 96
[2024-08-30] MEDS: predniSONE 20 MG TAB PO SCH (14:57)
[2024-08-31 04:13] VITALS: BP 134/76; TEMP 97.7; O2SAT 94
[2024-09-01] MEDS: ALBUTEROL SULFATE 2.5MG/0.5ML INH NEB SOLN NEB PRN (01:41)
[2024-09-01 04:21] VITALS: BP 156/87; TEMP 98.1; O2SAT 96
[2024-09-01 09:02] VITALS: BP 142/64
[2024-09-02 04:00] VITALS: BP 149/76; TEMP 97.5; O2SAT 77
[2024-09-02 12:26] LABS: HEMATOCRIT 40.1 % (42.0-52.0); HEMOGLOBIN 13.4 g/dl (13.5-17.5); MEAN CORPUSCULAR HEMOGLOBIN 29.6 pg (27.0-33.0); MEAN CORPUSCULAR HGB CONC 33.4 g/dl (32.0-36.5); MEAN CORPUSCULAR VOLUME 88.7 fl (80.0-96.0); PLATELET COUNT, AUTOMATED 340 10^3/uL (150-450); RED BLOOD COUNT 4.52 10^6/uL (4.30-6.10); WHITE BLOOD COUNT 9.3 10^3/uL (4.0-10.0)
[2024-09-02 12:55] LABS: BLOOD UREA NITROGEN 18 MG/DL (9-23); CALCIUM LEVEL 8.8 MG/DL (8.3-10.6); CARBON DIOXIDE LEVEL 30 MMOL/L (20-31); CHLORIDE LEVEL 102 MMOL/L (98-107); CREATININE FOR GFR 0.61 MG/DL (0.70-1.30); GLOMERULAR FILTRATION RATE > 60.0 (>35); GLUCOSE, FASTING 119 MG/DL (74-106); SODIUM LEVEL 141 MMOL/L (136-145)
[2024-09-03 03:42] VITALS: BP 143/74; TEMP 97.5; O2SAT 94
[2024-09-03] MEDS: NYSTATIN 100,000 UNITS/GM TOPICAL PWD 15GM TOP SCH (21:21)
[2024-09-04 04:18] VITALS: BP 139/82; TEMP 97.5; O2SAT 95
[2024-09-05 04:58] VITALS: BP 169/91; TEMP 97.7; O2SAT 96
[2024-09-05 13:18] LABS: HEMATOCRIT 41.5 % (42.0-52.0); HEMOGLOBIN 13.7 g/dl (13.5-17.5); MEAN CORPUSCULAR VOLUME 87.7 fl (80.0-96.0); PLATELET COUNT, AUTOMATED 377 10^3/uL (150-450); RED BLOOD COUNT 4.73 10^6/uL (4.30-6.10); WHITE BLOOD COUNT 10.5 10^3/uL (4.0-10.0)
[2024-09-06 04:00] VITALS: BP 119/68; TEMP 97.3; O2SAT 93
[2024-09-07 04:00] VITALS: BP 122/70; TEMP 97.5; O2SAT 94
[2024-09-08 03:17] VITALS: BP 160/88; TEMP 97.7; O2SAT 96
[2024-09-09 04:49] VITALS: BP 138/79; TEMP 98.3; O2SAT 95
[2024-09-09 12:06] LABS: HEMATOCRIT 46.1 % (42.0-52.0); HEMOGLOBIN 15.4 g/dl (13.5-17.5); MEAN CORPUSCULAR HEMOGLOBIN 29.6 pg (27.0-33.0); MEAN CORPUSCULAR HGB CONC 33.4 g/dl (32.0-36.5); MEAN CORPUSCULAR VOLUME 88.5 fl (80.0-96.0); PLATELET COUNT, AUTOMATED 359 10^3/uL (150-450); RED BLOOD COUNT 5.21 10^6/uL (4.30-6.10); WHITE BLOOD COUNT 12.5 10^3/uL (4.0-10.0)
[2024-09-09 12:31] LABS: BLOOD UREA NITROGEN 17 MG/DL (9-23); CALCIUM LEVEL 9.6 MG/DL (8.3-10.6); CARBON DIOXIDE LEVEL 30 MMOL/L (20-31); CHLORIDE LEVEL 104 MMOL/L (98-107); CREATININE FOR GFR 0.59 MG/DL (0.70-1.30); GLOMERULAR FILTRATION RATE > 60.0 (>35); GLUCOSE, FASTING 88 MG/DL (74-106); SODIUM LEVEL 143 MMOL/L (136-145)
[2024-09-10 04:03] VITALS: BP 156/76; TEMP 97.7; O2SAT 96
[2024-09-10 08:20] VITALS: BP 117/69
[2024-09-12] MEDS ORDERED: PRED10TA2 PO (11:36)
== END 2024-09-12 13:35 | disposition home or self-care (01) | DRG 565 ==
LOC: EDBD 10:34 → EDSEX 10:34 → M ED 10:34 → M ED INP 15:52 → M MS5PR 21:10
PROVIDERS: ADMIT Family Medicine; ATTEND Student in an Organized Health Care Education/Training Program
DX: S72.002P Fracture of unspecified part of neck of left femur, subsequent encounter for closed fracture with malunion (principal); I48.21 Permanent atrial fibrillation; F05 Delirium due to known physiological condition; Z66 Do not resuscitate; R29.6 Repeated falls; I25.10 Atherosclerotic heart disease of native coronary artery without angina pectoris; J11.1 Influenza due to unidentified influenza virus with other respiratory manifestations; J45.909 Unspecified asthma, uncomplicated; I10 Essential (primary) hypertension; N40.1 Benign prostatic hyperplasia with lower urinary tract symptoms; K21.9 Gastro-esophageal reflux disease without esophagitis; E66.9 Obesity, unspecified; E78.5 Hyperlipidemia, unspecified; Z87.891 Personal history of nicotine dependence; Z88.8 Allergy status to other drugs, medicaments and biological substances; Z79.01 Long term (current) use of anticoagulants; Z95.0 Presence of cardiac pacemaker; Z79.899 Other long term (current) drug therapy; Z95.1 Presence of aortocoronary bypass graft; Z95.5 Presence of coronary angioplasty implant and graft; R26.89 Other abnormalities of gait and mobility; Z74.1 Need for assistance with personal care